=== PATIENT | female | born 1985 | race Caucasian/White ===

== ENCOUNTER 2024-10-04 06:24 | Day surgery (SDC) | payer OTHER ==
[2024-10-04] VITALS (16 sets, daily range): BP systolic 115–154; BP diastolic 59–95
[~2024-10-04] VITALS: Ht 172.7 cm; Wt 109.6 kg
[~2024-10-04 06:24] MED LIST: ALBU90OI INH; AMPDEX10CR PO; CeFAZolin Sodium 2,000 MG in NS 100 ML IV SCH; Lactated Ringer's 1,000 ML IV SCH; Prozac40 MG PO
[2024-10-04] MEDS ORDERED: Bupivacaine 0.5% HCl 5 MG/ML 30MLVIAL ONE (06:57)
[2024-10-04] MEDS ORDERED: Dexamethasone Sod Phos 10 MG/ML 1ML VIAL ONE (07:15)
[2024-10-04] MEDS ORDERED: Lidocaine HCl 2% 20 ML MDV ONE (07:15)
[2024-10-04] MEDS ORDERED: Ondansetron HCl 2 MG / ML 2ML Vial ONE (07:15)
[2024-10-04] MEDS ORDERED: propofoL 20 ML IV ONE (07:15)
[2024-10-04] MEDS ORDERED: Rocuronium Bromide 10 MG/ML 5ML Injection IV ONE ×3 (07:15→09:38)
[2024-10-04] MEDS ORDERED: Ketorolac Tromethamine 30mg Vial ONE (07:15)
[2024-10-04] MEDS ORDERED: FentaNYL Citrate 50 MCG/ML 5 ML Injection ONE (07:24)
[2024-10-04] MEDS ORDERED: Artificial Tear Opth Oint 3.5 GM ONE (07:59)
[2024-10-04] MEDS ORDERED: Lidocaine HCl 1% 5 ML SYR INJ ONE (08:00)
[2024-10-04] MEDS ORDERED: HYDROmorphone HCl/Pf 1MG SYR IV PRN ×2 (08:05→10:25)
[2024-10-04] MEDS ORDERED: Ondansetron HCl 2 MG / ML 2ML Vial IV PRN ×2 (08:05→10:20)
[2024-10-04] MEDS ORDERED: FentaNYL Citrate 50 MCG/ML 2 ML Injection IV PRN ×3 (08:05)
[2024-10-04] MEDS ORDERED: Albuterol 2.5 MG/3 ML VIAL INH PRN (08:05)
[2024-10-04] MEDS ORDERED: Glycopyrrolate 0.2 MG/ML 5ML VIAL ONE (09:56)
[2024-10-04] MEDS ORDERED: Neostigmine Methylsulfate 5MG/5ML SYR ONE (09:56)
[2024-10-04] MEDS ORDERED: Labetalol HCL 5 MG/ML 4ML Injection (Single Dose) ONE (10:04)
[2024-10-04] MEDS ORDERED: HYDROmorphone HCl/Pf 1MG SYR ONE (10:18)
[2024-10-04] MEDS ORDERED: Promethazine HCl 12.5 MG Supp PR PRN (10:20)
[2024-10-04] MEDS ORDERED: Promethazine HCl 25 MG Tab PO PRN (10:20)
[2024-10-04] MEDS ORDERED: OxyCODONE 5 mg/Acetamin 325 mg TABLET PO PRN (10:20)
[2024-10-04] MEDS ORDERED: Ondansetron 4 MG TAB PO PRN (10:20)
[2024-10-04] MEDS ORDERED: Lactated Ringer's 1,000 ML IV SCH (10:20)
[2024-10-04] MEDS ORDERED: Naloxone HCl 0.4MG / ML 1ML Vial IV PRN (10:25)
[2024-10-04] MEDS ORDERED: Simethicone 80 MG Chew PO PRN (10:25)
[2024-10-04] MEDS ORDERED: FentaNYL Citrate 50 MCG/ML 2 ML Injection ONE (10:36)
[2024-10-04] MEDS ORDERED: Ketorolac Tromethamine 30mg Vial IV PRN (10:45)
--- NOTE | 2024-10-04 11:24 | NUR ---
POST OP ARRIVED FROM PACU VIA [facility], AWAKE, A&OX4, REPORTS HAVING SOME LOWER ABD CRAMPING, PT GIVEN A KPAD, LUNGS CLEAR T/O, HRR, DENIES ANY SOB, ACTIVE BT'S X 4, ABD SOFT W/ 4 LAP SITES W/ WOUND GLUE C/D/I, CONT. TO MONITOR VS AND ANY CHANGES.
[2024-10-04] MEDS ORDERED: CeFAZolin Sodium 2,000 MG in NS 100 ML IV SCH (14:00)
--- NOTE | 2024-10-04 14:01 | NUR ---
AMBULATED TO THE BATHROOM TO VOID, REPORTSA BLE TO VOID WITHOUT DIFFICULTY, PERCOCET GIVEN FOR PAIN, REPORTS PAIN IS SLIGHTLY "BETTER" AT THIS TIME, CONT. TO MONITOR FOR ANY CHANGES.
--- NOTE | 2024-10-04 17:25 | NUR ---
SUMMARY PT SLEPT THE REST OF AFTERNOON AFTER MEDICATED W/ PERCOCET, HAS BEEN UP TO VOID X2, DENIES ANY NAUSEA, KPAD IN PLACE, ABD BINDER OFFERED, VSS, NO ACUTE CHANGES THIS SHIFT.
[2024-10-05 03:03] VITALS: BP 139/85
--- NOTE | 2024-10-05 06:03 | NUR ---
SHIFT SUMMARY CAROL WAS ALERT AND FULLY ORIENTED ON ASSESSMENT. PT IND AND VOIDING APPROPRIATELY. LAP SITES C/D/I, CIRCULATION TO EXTS AND SENSATION INTACT. PAIN WELL MANAGED. SCANT VAGINAL BLEEDING TO PADS. VSS, NO ACUTE EVENTS OR CHANGES TO PT CONDITION TONIGHT.
[2024-10-05 06:15] LABS: BASOPHILS ABSOLUTE AUTO 0.03 K/mm3 (0.00-0.23); BASOPHILS PERCENT AUTO 0 % (0-2); EOSINOPHILS ABSOLUTE AUTO 0.01 K/mm3 (0.00-0.68); EOSINOPHILS PERCENT AUTO 0 % (0-6); Hematocrit 38.4 % (33.0-51.0); Hemoglobin 12.7 g/dL (11.5-16.0); IMMATURE GRAN ABSOLUTE AUTO 0.05 K/mm3 (0.00-0.10); IMMATURE GRAN PERCENT AUTO 0 % (0-1); LYMPHOCYTES ABSOLUTE AUTO 2.18 K/mm3 (0.84-5.20); LYMPHOCYTES PERCENT AUTO 16 % (21-46); MONOCYTES ABSOLUTE AUTO 0.81 K/mm3 (0.16-1.47); MONOCYTES PERCENT AUTO 6 % (4-13); Mean Corpuscular HGB 29.4 pg (26.0-34.0); Mean Corpuscular HGB Conc 33.1 g/dL (31.5-36.5); Mean Corpuscular Volume 89 fL (80-100); Mean Platelet Volume 10.2 fL (9.1-12.4); NEUTROPHILS PERCENT AUTO 77 % (41-73); Platelet Count 322 K/mm3 (150-400); RDW Coefficient Variation 13.3 % (11.7-14.2); RDW Standard Deviation 43.7 fL (35.1-46.3); Red Blood Cell Count 4.32 M/mm3 (3.80-5.20); White Blood Cell Count 13.38 K/mm3 (4.00-11.30)
[2024-10-05 07:23] VITALS: BP 114/81
--- NOTE | 2024-10-05 07:55 | NUR ---
AWAKE, C/O PAIN ON ABD, MEDICATED W/ PERCOCET, ANXIOUS TO GO HOME, WONDERLY HERE TO SEE PT, DC ORDERS NOTED.
[2024-10-05] MEDS ORDERED: Amphet Asp/Amphet/D-Amphet 10 MG CapCR PO SCH (09:00)
[2024-10-05] MEDS ORDERED: FLUoxetine HCL 20 MG CAP PO SCH (09:00)
[2024-10-05] MEDS ORDERED: Estradiol 1 MG Tab PO SCH (09:00)
[2024-10-05] MEDS ORDERED: ESTRADIOL PO (09:30)
[2024-10-05] MEDS ORDERED: Percocet 5-3251 EACH PO (09:31)
--- NOTE | 2024-10-05 09:53 | NUR ---
PT DC'D HOME, DC INSTRUCTIONS GIVEN, VERBALIZED UNDERSTANDING.
[2024-10-06] MEDS ORDERED: PERCOCET 10-321 EA13 PO (13:17)
[2024-10-06] MEDS ORDERED: CEFD300 PO (13:17)
== END 2024-10-05 09:55 | disposition home or self-care (01) ==
LOC: ORSCMMR 06:24 → ORD 07:30 → ORSCMMR 11:04 → SURS 11:04 → ORSCMMR 10-05 09:55 → SURS 10-05 09:55
PROVIDERS: Obstetrics & Gynecology
PROC: 0UT9FZZ Resection of Uterus, Via Natural or Artificial Opening With Percutaneous Endoscopic Assistance (ICD-10-PCS; principal; 2024-10-04 07:30)
PROC: 0UT2FZZ Resection of Bilateral Ovaries, Via Natural or Artificial Opening With Percutaneous Endoscopic Assistance (ICD-10-PCS; principal; 2024-10-04 07:30)
DX: N92.1 Excessive and frequent menstruation with irregular cycle (principal); N94.6 Dysmenorrhea, unspecified; N94.12 Deep dyspareunia; D50.0 Iron deficiency anemia secondary to blood loss (chronic); R10.2 Pelvic and perineal pain; E66.9 Obesity, unspecified; Z68.36 Body mass index [BMI] 36.0-36.9, adult; N83.12 Corpus luteum cyst of left ovary; N83.11 Corpus luteum cyst of right ovary; J45.909 Unspecified asthma, uncomplicated; F17.210 Nicotine dependence, cigarettes, uncomplicated; Z79.899 Other long term (current) drug therapy
CPT/HCPCS: 36415; 85025; 86850; 86900; 86901; 88307; A9270; J0690; J1100; J1171; J1885; J2405; J2704; J2710; J3010; J7120

== ENCOUNTER 2024-10-06 10:19 | Emergency (ER) | payer OTHER ==
[~2024-10-06] VITALS: Ht 172.7 cm; Wt 108.9 kg
[~2024-10-06 10:19] MED LIST changes: -CeFAZolin Sodium 2,000 MG in NS 100 ML IV SCH; +ESTRADIOL PO; -Lactated Ringer's 1,000 ML IV SCH; +Percocet 5-3251 EACH PO
[2024-10-06] MEDS ORDERED: Morphine Sulfate 4 MG/1 ML Injection IV ONE (11:00)
[2024-10-06] MEDS ORDERED: Ondansetron HCl 2 MG / ML 2ML Vial IV ONE (11:00)
[2024-10-06 11:34] LABS: BASOPHILS ABSOLUTE AUTO 0.04 K/mm3 (0.00-0.23); BASOPHILS PERCENT AUTO 1 % (0-2); EOSINOPHILS ABSOLUTE AUTO 0.12 K/mm3 (0.00-0.68); EOSINOPHILS PERCENT AUTO 2 % (0-6); Hematocrit 38.4 % (33.0-51.0); Hemoglobin 12.9 g/dL (11.5-16.0); IMMATURE GRAN ABSOLUTE AUTO 0.02 K/mm3 (0.00-0.10); IMMATURE GRAN PERCENT AUTO 0 % (0-1); LYMPHOCYTES ABSOLUTE AUTO 2.36 K/mm3 (0.84-5.20); LYMPHOCYTES PERCENT AUTO 36 % (21-46); MONOCYTES ABSOLUTE AUTO 0.41 K/mm3 (0.16-1.47); MONOCYTES PERCENT AUTO 6 % (4-13); Mean Corpuscular HGB 29.7 pg (26.0-34.0); Mean Corpuscular HGB Conc 33.6 g/dL (31.5-36.5); Mean Corpuscular Volume 89 fL (80-100); Mean Platelet Volume 9.5 fL (9.1-12.4); NEUTROPHILS ABSOLUTE AUTO 3.58 K/mm3 (1.96-9.15); NEUTROPHILS PERCENT AUTO 55 % (41-73); Platelet Count 298 K/mm3 (150-400); RDW Coefficient Variation 13.4 % (11.7-14.2); RDW Standard Deviation 43.8 fL (35.1-46.3); Red Blood Cell Count 4.34 M/mm3 (3.80-5.20); White Blood Cell Count 6.53 K/mm3 (4.00-11.30)
[2024-10-06 11:57] LABS: Albumin, Blood 3.7 g/dL (3.4-5.0); Albumin/Globulin Ratio 1.1 (0.8-1.8); Bilirubin, Total 0.5 mg/dL (0.1-1.0); Bun/Creatinine Ratio 20.6 (12.0-20.0); Creatinine, Blood 0.63 mg/dL (0.40-1.00); Globulin, Blood 3.4 g/dL (2.2-4.0); Potassium, Blood 3.9 mmol/L (3.5-5.5); Total Protein, Blood 7.1 g/dL (6.4-8.2)
[2024-10-06] MEDS ORDERED: CEFD300 PO (13:17)
[2024-10-06] MEDS ORDERED: PERCOCET 10-321 EA13 PO (13:17)
== END 2024-10-06 13:44 | disposition home or self-care (01) ==
LOC: ER 10:19
PROVIDERS: Emergency Medicine
DX: R04.2 Hemoptysis (principal); Z79.899 Other long term (current) drug therapy; Z79.51 Long term (current) use of inhaled steroids; Z79.891 Long term (current) use of opiate analgesic
CPT/HCPCS: 71045; 80053; 85025; 96374; 96375; 99283-25; J2270; J2405